=== PATIENT | female | born 1990 | race Caucasian/White ===

== ENCOUNTER 2018-02-05 08:28 | Emergency (ER) | payer MEDICAID, OTHER ==
--- NOTE | 2018-02-05 10:53 | RAD ---
HISTORY: abd pain/RUQ tenderness/eary satiety COMPARISONS: None TECHNIQUE: Multiple transverse and longitudinal ultrasound images were obtained of the right upper quadrant of the abdomen using grayscale, color Doppler, and spectral Doppler imaging. FINDINGS: LIVER: The liver is normal in shape, size, contour, and echogenicity. There are no focal parenchymal masses. There is normal hepatopedal flow of the portal vein on Doppler imaging. BILIARY TREE: There is no intrahepatic or extrahepatic biliary dilatation. The common duct measures 0.3 cm. GALLBLADDER: The gallbladder is well-visualized. There is no cholelithiasis, gallbladder wall thickening, pericholecystic fluid, or sonographic Velázquez sign. PANCREAS: The head of the pancreas is unremarkable. The tail of the pancreas is not well visualized secondary to overlying bowel gas. RIGHT KIDNEY: The right kidney is normal in shape, size, contour, and echogenicity. There is no hydronephrosis or nephrolithiasis. The right kidney measures 10.3 x 3.9 x 4.2 cm. AORTA AND IVC: The aorta and IVC are unremarkable. Normal arterial and venous waveforms are identifiable on spectral Doppler imaging. FLUID: There are no pleural effusions. There is no free fluid within the hepatorenal recess. OTHER FINDINGS: None. IMPRESSION: NO ACUTE SONOGRAPHIC PATHOLOGY OF THE VISUALIZED PORTION OF THE ABDOMEN.
--- NOTE | 2018-02-05 10:57 | UC ---
Abdominal Pain Female HPI - HPI Summary HPI Summary: The patient is a 27-year-old female that has had intermittent abdominal pain for the past 2-3 weeks. She has been doing a lot of travel. During her travels she experienced constipation and had to take a laxative. She has a past history of reflux and had an upper endoscopy in the past. She has also been treated for gastritis. She states initially she seemed to have left upper quadrant abdominal pain that radiated towards her right lower quadrant. His seemed to resolve and now she has primarily right sided abdominal pain. She denies any vomiting. Does feel anorexic. His had nausea. Denies any diarrhea. He still feels somewhat constipated. She has had no change in her weight. Denies any UTI symptoms. Denies any vaginal discharge or itching. He is not having any dyspareunia. She has had no fever or chills. When she does eat she feels full very quickly. - History of Current Complaint Chief Complaint: UCAbdominalPain Stated Complaint: ABDOMINAL PAIN Time Seen by Provider: 02/05/18 09:53 Hx Obtained From: Patient Hx Last Menstrual Period: 01/18 Onset/Duration: Gradual Onset, Lasting Hours Timing: Intermittent Episodes Lasting: Severity Initially: Moderate Severity Currently: Moderate Pain Intensity: 7 Pain Scale Used: 0-10 Numeric Location: Discrete At: RUQ Radiates: No Character: Aching, Cramping Aggravating Factor(s): Nothing Alleviating Factor(s): Nothing Associated Signs and Symptoms: Positive: Decreased Appetite, Nausea Allergies/Adverse Reactions: Allergies Allergy/AdvReac Type Severity Reaction Status Date / Time Egg Derived Allergy Stomach Verified 02/05/18 10:03 Cramps PMH/Surg Hx/FS Hx/Imm Hx Previously Healthy: Yes GI/ History: Gastroesophageal Reflux - Surgical History Surgical History: None - Family History Known Family History: Positive: Hypertension - Social History Alcohol Use: Occasionally Substance Use Type: Marijuana Substance Use Comment - Amount & Last Used: last week Smoking Status (MU): Current Some Day Smoker Type: Cigarettes Review of Systems Constitutional: Negative Skin: Negative Eyes: Negative ENT: Negative Respiratory: Negative Cardiovascular: Negative Gastrointestinal: Nausea Genitourinary: Negative Motor: Negative Neurovascular: Negative Musculoskeletal: Negative Neurological: Negative Psychological: Negative Is Patient Immunocompromised?: No All Other Systems Reviewed And Are Negative: Yes Physical Exam Triage Information Reviewed: Yes Appearance: Well-Appearing, No Pain Distress, Well-Nourished Vital Signs: Initial Vital Signs Temp 98.0 F 02/05/18 08:40 Pulse 73 02/05/18 08:40 Resp 18 02/05/18 08:40 BP 109/71 02/05/18 08:40 Pulse Ox 100 02/05/18 08:40 Vital Signs Reviewed: Yes Eyes: Positive: Conjunctiva Clear ENT: Positive: Hearing grossly normal. Negative: Nasal congestion, Nasal drainage, Trismus, Muffled voice, Sinus tenderness, Uvula midline Neck: Positive: Supple, Nontender Respiratory: Positive: Lungs clear, Normal breath sounds, No respiratory distress, No accessory muscle use Cardiovascular: Positive: RRR, No Murmur Abdomen Description: Positive: Soft. Negative: Nontender - RUQ and LLQ abd tenderness, CVA Tenderness (R), CVA Tenderness (L), Hepatomegaly, McBurney's Point Tenderness, Pulsatile Mass, Splenomegaly Musculoskeletal: Positive: ROM Intact, No Edema Neurological Exam: Normal Neurological: Positive: Alert Psychological Exam: Normal Skin Exam: Normal Diagnostics - Laboratory Diagnostic Studies Completed/Ordered: UA- + leuks Abd Pain Female Course/Dx - Differential Dx/Diagnosis Provider Diagnoses: abdominal pain of uncertain cause. ? contipation Discharge - Sign-Out/Discharge Documenting (check all that apply): Patient Departure All imaging exams completed and their final reports reviewed: Yes - Discharge Plan Condition: Stable Disposition: HOME Prescriptions: Omeprazole 20 mg PO BEDTIME #14 capsule. Patient Education Materials: Constipation (ED), Acute Abdominal Pain (ED) Referrals: [facility] [place]] - As Soon As Possible No Primary Care Phys,NOPCP [Primary Care Provider] - Additional Instructions: milk of magnesia 30 ml 2 tablesponns every 6 hours x 3 doses Recheck for increased pain/fever/vomiting find local MD as planned recheck in not better in 1-2 days - Billing Disposition and Condition Condition: STABLE Disposition: Home
--- NOTE | 2018-02-05 11:02 | RAD ---
Indication: Abdominal pain. Comparison: Abdominal ultrasound of the same date. Technique: Supine and upright views of the abdomen. Report: Negative for free air beneath the diaphragm. Moderate stool present throughout the colon. No dilated small or large bowel loops evident. Negative for suspicious calcifications or mass effect. Unremarkable soft tissue contours. Clear lung bases. IMPRESSION: #. No abdominal pelvic pathologic process evident.
[2018-02-05 11:32] VITALS: BP 100/55
== END 2018-02-05 11:20 | disposition home or self-care (01) ==
LOC: UCEAST 08:28
CPT/HCPCS: 74019; 76705; 81003; 84702; 87086; 99212; G0463

== ENCOUNTER 2018-02-09 08:42 | Emergency (ER) | payer MEDICAID ==
[2018-02-09 08:54] VITALS: BP 107/66
--- NOTE | 2018-02-09 09:37 | UC ---
Abdominal Pain Female HPI - HPI Summary HPI Summary: PATIENT WITH SEVERAL WEEKS OF RIGHT SIDED ABDOMINAL PAIN DESCRIBED CRAMPING/ BURNING. WAS SEEN FOR THIS 4 DAYS AGO AND HAD RIGHT UPPER QUADRANT ULTRASOUND AND ABDOMINAL X-RAYS WHICH WERE UNREMARKABLE. URINE CULTURE SHOWED NO GROWTH. PRESCRIBED MILK OF MAGNESIA. SHE HAD A LARGE BM YESTERDAY AND SAW LITTLE BIT OF BLOOD. THOUGHT SHE WAS FEELING BETTER INITIALLY BUT NOW REPORTS PAIN IS THE SAME. IT IS INTERMITTENT LASTING UP TO AN HOUR MULTIPLE TIMES DAILY. HAD SOME NAUSEA THIS MORNING WORSE AFTER EATING AND REPORTS URINARY FREQUENCY. NO FEVER. - History of Current Complaint Chief Complaint: UCAbdominalPain Stated Complaint: ABD PAIN Time Seen by Provider: 02/09/18 09:36 Hx Obtained From: Patient Hx Last Menstrual Period: 01/18/18 Onset/Duration: Gradual Onset, Lasting Weeks, Still Present Severity Initially: Moderate Severity Currently: Mild Pain Intensity: 1 Pain Scale Used: 0-10 Numeric Location: Discrete At: RUQ, Discrete At: RLQ, Epigastric Radiates: No Character: Burning, Cramping Alleviating Factor(s): Nothing Associated Signs and Symptoms: Negative: Fever Allergies/Adverse Reactions: Allergies Allergy/AdvReac Type Severity Reaction Status Date / Time Egg Derived Allergy Stomach Verified 02/09/18 08:54 Cramps Home Medications: Home Medications Cetirizine* [ZyrTEC 10 MG TAB*] 10 mg PO DAILY 02/09/18 [History Confirmed 02/09] Magnesium Hydroxide LIQ* [Milk of Magnesia LIQ*] 30 ml PO DAILY PRN 02/09/18 [ History Confirmed 02/09/18] PMH/Surg Hx/FS Hx/Imm Hx GI/ History: Gastroesophageal Reflux - Surgical History Surgical History: None - Family History Known Family History: Positive: Hypertension Family History: BREAST CA - MOM, MS - DAD - Social History Alcohol Use: Occasionally Substance Use Type: Marijuana Substance Use Comment - Amount & Last Used: once, last week Smoking Status (MU): Current Some Day Smoker Type: Cigarettes Amount Used/How Often: twice a year Review of Systems Constitutional: Negative Skin: Negative Respiratory: Negative Cardiovascular: Negative Gastrointestinal: Abdominal Pain, Nausea Genitourinary: Frequency All Other Systems Reviewed And Are Negative: Yes Physical Exam Triage Information Reviewed: Yes Appearance: Well-Appearing, No Pain Distress, Well-Nourished Vital Signs: Initial Vital Signs Temp 97.7 F 02/09/18 08:47 Pulse 73 02/09/18 08:47 Resp 16 02/09/18 08:47 BP 107/66 02/09/18 08:47 Pulse Ox 100 02/09/18 08:47 Laboratory Tests 02/09/18 09:51 POC Urine Color Yellow POC Urine Clarity Slightly cloudy POC Urine pH 6.5 POC Ur Specif Fabius 1.015 POC Urine Protein Negative POC Ur Glucose (UA) Negative POC Urine Ketones Negative POC Urine Blood Trace-lysed A POC Urine Nitrite Negative POC Urine Bilirubin Negative POC Urine Urobilinogen 0.2 POC U Leukocyte Esteras Trace A Vital Signs Reviewed: Yes Eyes: Positive: Conjunctiva Clear ENT: Positive: Hearing grossly normal Neck: Positive: Supple, Nontender, No Lymphadenopathy Respiratory Exam: Normal Cardiovascular Exam: Normal Abdomen Description: Positive: Soft, Other: - TTP RUQ, RLQ, EPIGASTRIC. NO REBOUND OR RIGIDITY. NEG OBTURATOR. Negative: CVA Tenderness (R), CVA Tenderness (L), Distended Bowel Sounds: Positive: Present Musculoskeletal: Positive: No Edema Neurological: Positive: Alert Psychological: Positive: Age Appropriate Behavior Skin: Negative: rashes Abd Pain Female Course/Dx - Course Course Of Treatment: UNCLEAR ETIOLOGY OF PATIENT'S SYMPTOMS. URINE IS GROSSLY UNREMARKABLE. WILL SEND FOR CULTURE GIVEN IT HAS TRACE LEUKOCYTES HOWEVER LOW SUSPICION FOR URINARY ETIOLOGY. URINE CULTURE FROM LAST VISIT 4 DAYS AGO WAS NEGATIVE. IMAGING AT LAST VISIT WAS ALSO NEGATIVE. PATIENT IS IN NO ACUTE DISTRESS. DISCUSSED TRANSFER TO ED FOR FURTHER EVALUATION GIVEN PERSISTENT SYMPTOMS HOWEVER PATIENT PREFERS TO FOLLOW UP AN OUTPATIENT. ADVISED TO GO TO ED WITHOUT FAIL IF SYMPTOMS WORSEN. ISOLATED EPISODE OF BLOOD IN STOOL LIKELY DUE TO LARGE VOLUME OF BM AFTER TAKING LAXATIVE. - Differential Dx/Diagnosis Provider Diagnoses: RIGHT SIDED ABDOMINAL PAIN, NOS Discharge - Sign-Out/Discharge Documenting (check all that apply): Patient Departure All imaging exams completed and their final reports reviewed: No Studies - Discharge Plan Condition: Stable Disposition: HOME Patient Education Materials: Abdominal Pain (ED) Referrals: Fred Brown MD [Medical Doctor] - ( SCHEDULED) Additional Instructions: UNCLEAR ETIOLOGY OF YOUR SYMPTOMS TODAY. URINE TEST WAS UNREMARKABLE. WE WILL SEND IT FOR CULTURE TO ASSURE NO INFECTIOUS PROCESS. YOU HAD RIGHT UPPER QUADRANT ULTRASOUND AND ABDOMINAL X-RAYS AT YOUR LAST VISIT WHICH WERE UNREMARKABLE. FOLLOW A BLAND, EASY DIET AND KEEP YOUR UPCOMING APPOINTMENT WITH YOUR PCP. GO TO THE ED WITHOUT FAIL IF YOU DEVELOP WORSENING PAIN, NAUSEA , BLOOD PER RECTUM, FEVER OR ANY OTHER CONCERNING SYMPTOMS. - Billing Disposition and Condition Condition: STABLE Disposition: Home
== END 2018-02-09 10:15 | disposition home or self-care (01) ==
LOC: UCEAST 08:42
DX: K21.9 Gastro-esophageal reflux disease without esophagitis (principal); R10.9 Unspecified abdominal pain; F17.210 Nicotine dependence, cigarettes, uncomplicated
CPT/HCPCS: 81003; 84702; 87086; 99211; G0463

== ENCOUNTER 2018-02-09 11:34 | Emergency (ER) | payer MEDICAID ==
[2018-02-09 15:47] LABS: ABS Basophils 0.1 10^3/ul (0-0.2); ABS Eosinophils 0.1 10^3/ul (0-0.6); ABS Lymphocytes 2.3 10^3/ul (1.0-4.8); ABS Monocytes 0.3 10^3/ul (0-0.8); ABS Neutrophils 3.9 10^3/ul (1.5-7.7); ABS Nucleated RBC 0 10^3/ul; Eosinophil % 1.5 % (0-6); Hematocrit 41 % (35-47); Hemoglobin 14.2 g/dl (12.0-16.0); Lymphocyte % 34.7 % (25-47); Mean Corpuscular HGB Conc 34 g/dl (31-36); Mean Corpuscular Hemoglobin 32 pg (27-31); Mean Corpuscular Volume 94 fL (80-97); Mean Platelet Volume 8.3 um3 (7.4-10.4); Nucleated Red Blood Cells % 0.1; Platelet Count 184 10^3/ul (150-450); Red Cell Distribution Width 13 % (10.5-15); White Blood Count 6.7 10^3/ul (3.5-10.8)
[2018-02-09 16:03] LABS: INR 1.02 (0.77-1.02)
[2018-02-09 16:10] LABS: EGFR Non-African American 84.2 (>60)
[2018-02-09] MEDS ORDERED: NS 0.9% 1000 ML* 1,000 ML IV ONE (17:47)
--- NOTE | 2018-02-09 18:15 | ED ---
Abdominal Pain/Female - HPI Summary HPI Summary: Patient presents with abdominal pain that she has had for 3 weeks to 1 month now. She reports it's been diffuse but it first was predominantly on the left. Since 3 days ago, her pain is transitioning more to her umbilicus and the right. Her symptoms of been consistent throughout. She reports a constant pressure with is 0-1 pain when she is resting and pain goes up to a 5 out of 10 at its worst with movement. This was initially identified when she was walking to the bus. Admits pain is still worse when she walks for periods of time. She has had a reduced appetite and vague nausea however no vomiting. She does have a history of GERD however does not feel this is any worse as of late. She does have a history of EGD and was prescribed PPIs however she doesn't take these as it makes her belch. She also avoids NSAIDs as they do upset her stomach. She's been taking a PPI for the past 3 days to see if this will help her pain however she has noticed no change in her symptoms. [facility] and had a UA which was negative for acute UTI and did not grow out any bacteria on culture. She also had a an ultrasound of her gallbladder which was normal and an abdominal x-ray which revealed constipation. She does admit she has issues with this and after taking milk of magnesium recently, she was able to move her bowels for 3 consistent days. She reports this did help her pain at first however pain returned and so she was seen again today at [facility]. Because her pain is migrated to the. Umbilical and right side of her body, there was concern for appendicitis. Patient denies fever, chills. She does report a 1 time bright red blood on toilet paper with wiping after moving her bowels. She reports this was painful and she has a history of hemorrhoids and this felt the same. She also admits to increased urinary frequency with right flank pain however denies dysuria, urinary urgency and no arlin change in color or odor of her urine. Additionally she denies vaginal discharge, irritation or itching. She is sexually active with her . Denies dyspareunia, postcoital bleeding. She 's never had a Pap smear or pelvic exam. No family history of gastrointestinal , urinogenital cancers. She does not feel she needs anything for pain or nausea at this point in time. Reports today is the best she has felt while waiting for test results laying in bed and not eating. - History of Current Complaint Chief Complaint: EDAbdPain Stated Complaint: ABD PAIN Hx Obtained From: Patient, Family/School Psychology Specialist - Hx Last Menstrual Period: 01/18/18 Pain Intensity: 4 Allergies/Adverse Reactions: Allergies Allergy/AdvReac Type Severity Reaction Status Date / Time Egg Derived Allergy Stomach Verified 02/09/18 11:36 Cramps Home Medications: Home Medications Omeprazole CAP* [Prilosec CAP* 20 MG] 20 mg PO BEDTIME 02/09/18 [History Confirmed 02/09/18] PMH/Surg Hx/FS Hx/Imm Hx Previously Healthy: Yes Endocrine/Hematology History: Denies: Hx Anticoagulant Therapy, Hx Blood Disorders, Hx Diabetes Cardiovascular History: Denies: Hx Hypertension, Hx Pacemaker/ICD GI History: Reports: Hx Gastroesophageal Reflux Disease Denies: Hx Crohn's Disease, Hx Gall Bladder Disease, Hx Irritable Bowel History: Denies: Hx Kidney Infection, Hx Kidney Stones, Hx Renal Disease Sensory History: Reports: Hx Contacts or Glasses Denies: Hx Hearing Aid Opthamlomology History: Reports: Hx Contacts or Glasses Psychiatric History: Reports: Hx Panic Disorder - ANXIETY Infectious Disease History: No Infectious Disease History: Denies: Traveled Outside the [place] in Last 30 Days - Family History Known Family History: Positive: Hypertension Family History: BREAST CA - MOM, MS - DAD - Social History Lives: With Family - Alcohol Use: Occasionally Substance Use Type: Reports: Marijuana Substance Use Comment - Amount & Last Used: once, last week Smoking Status (MU): Current Some Day Smoker Type: Cigarettes Amount Used/How Often: twice a year Review of Systems Constitutional: Negative Negative: Fever, Chills, Fatigue ENT: Negative Negative: Sore Throat Cardiovascular: Negative Negative: Chest Pain Respiratory: Negative Negative: Shortness Of Breath, Cough Positive: Abdominal Pain, Nausea. Negative: Vomiting, Diarrhea Positive: frequency, flank pain. Negative: burning, dysuria, discharge, hematuria, incontinence, pain, urgency Musculoskeletal: Negative Skin: Negative Neurological: Negative Psychological: Normal All Other Systems Reviewed And Are Negative: Yes Physical Exam Triage Information Reviewed: Yes Vital Signs On Initial Exam: Initial Vitals Temp Pulse Resp BP Pulse Ox 97.3 F 82 14 114/68 100 02/09/18 11:36 02/09/18 11:36 02/09/18 11:36 02/09/18 11:36 02/09/18 11:36 Vital Signs Reviewed: Yes Abdomen Description: Positive: Soft, McBurney's Point Tenderness - no rebounding ; (-) obturator, (-) psoas, Other: - mild LLQ pain, periumbilical pain, RUQ pain - no rebounding; epigastric and LUQ NTTP. Negative: CVA Tenderness (R), CVA Tenderness (L), Hernia @ Bowel Sounds: Positive: Present Pelvic Exam: Positive: External Exam Normal, Bimanual Exam Normal - pt reports some discomfort but no acute pain, No Cerv. Motion Tender, No Masses, Discharge - white mucous d/c. Negative: Active Bleeding Musculoskeletal: Positive: Normal, Strength/ROM Intact Neurological: Positive: Normal, Sensory/Motor Intact, Alert, Oriented to Person Place, Time, CN Intact II-III Psychiatric: Positive: Normal Diagnostics - Vital Signs Vital Signs Temp Pulse Resp BP Pulse Ox 02/09/18 17:00 86 99 02/09/18 16:00 84 100 02/09/18 15:01 89 100 02/09/18 14:59 77 112/72 100 02/09/18 14:22 62 107/66 100 02/09/18 14:00 79 100 02/09/18 13:53 67 94 02/09/18 13:52 72 106/75 100 02/09/18 11:36 97.3 F 82 14 114/68 100 - Laboratory Lab Results: Lab Results 02/09/18 02/09/18 02/09/18 Range/Units 15:32 15:32 15:32 WBC 6.7 (3.5-10.8) 10^3/ul RBC 4.40 (4.00-5.40) 10^6/ul Hgb 14.2 (12.0-16.0) g/dl Hct 41 (35-47) % MCV 94 (80-97) fL MCH 32 H (27-31) pg MCHC 34 (31-36) g/dl RDW 13 (10.5-15) % Plt Count 184 (150-450) 10^3/ul MPV 8.3 (7.4-10.4) um3 Neut % (Auto) 57.7 (38-83) % Lymph % (Auto) 34.7 (25-47) % Richardson % (Auto) 5.2 (0-7) % Eos % (Auto) 1.5 (0-6) % Baso % (Auto) 0.9 (0-2) % Absolute Neuts (auto) 3.9 (1.5-7.7) 10^3/ul Absolute Lymphs (auto) 2.3 (1.0-4.8) 10^3/ul Absolute Monos (auto) 0.3 (0-0.8) 10^3/ul Absolute Eos (auto) 0.1 (0-0.6) 10^3/ul Absolute Basos (auto) 0.1 (0-0.2) 10^3/ul Absolute Nucleated RBC 0 10^3/ul Nucleated RBC % 0.1 INR (Anticoag Therapy) 1.02 (0.77-1.02) APTT 26.5 (26.0-36.3) seconds Sodium 138 (135-145) mmol/L Potassium 3.7 (3.5-5.0) mmol/L Chloride 108 (101-111) mmol/L Carbon Dioxide 23 (22-32) mmol/L Anion Gap 7 (2-11) mmol/L BUN 8 (6-24) mg/dL Creatinine 0.81 (0.51-0.95) mg/dL Est GFR ( Amer) 101.9 (>60) Est GFR (Non-Af Amer) 84.2 (>60) BUN/Creatinine Ratio 9.9 (8-20) Glucose 81 (70-100) mg/dL Lactic Acid (0.5-2.0) mmol/L Calcium 9.5 (8.6-10.3) mg/dL Magnesium 2.0 (1.9-2.7) mg/dL Total Bilirubin 0.70 (0.2-1.0) mg/dL AST 14 (13-39) U/L ALT 8 (7-52) U/L Alkaline Phosphatase 35 (34-104) U/L C-Reactive Protein < 1.00 (<8.01) mg/L Total Protein 7.3 (6.4-8.9) g/dL Albumin 4.6 (3.2-5.2) g/dL Globulin 2.7 (2-4) g/dL Albumin/Globulin Ratio 1.7 (1-3) Lipase 26 (11.0-82.0) U/L Beta HCG, Quant < 0.60 mIU/mL 02/09/18 Range/Units 15:32 WBC (3.5-10.8) 10^3/ul RBC (4.00-5.40) 10^6/ul Hgb (12.0-16.0) g/dl Hct (35-47) % MCV (80-97) fL MCH (27-31) pg MCHC (31-36) g/dl RDW (10.5-15) % Plt Count (150-450) 10^3/ul MPV (7.4-10.4) um3 Neut % (Auto) (38-83) % Lymph % (Auto) (25-47) % Richardson % (Auto) (0-7) % Eos % (Auto) (0-6) % Baso % (Auto) (0-2) % Absolute Neuts (auto) (1.5-7.7) 10^3/ul Absolute Lymphs (auto) (1.0-4.8) 10^3/ul Absolute Monos (auto) (0-0.8) 10^3/ul Absolute Eos (auto) (0-0.6) 10^3/ul Absolute Basos (auto) (0-0.2) 10^3/ul Absolute Nucleated RBC 10^3/ul Nucleated RBC % INR (Anticoag Therapy) (0.77-1.02) APTT (26.0-36.3) seconds Sodium (135-145) mmol/L Potassium (3.5-5.0) mmol/L Chloride (101-111) mmol/L Carbon Dioxide (22-32) mmol/L Anion Gap (2-11) mmol/L BUN (6-24) mg/dL Creatinine (0.51-0.95) mg/dL Est GFR ( Amer) (>60) Est GFR (Non-Af Amer) (>60) BUN/Creatinine Ratio (8-20) Glucose (70-100) mg/dL Lactic Acid 1.1 (0.5-2.0) mmol/L Calcium (8.6-10.3) mg/dL Magnesium (1.9-2.7) mg/dL Total Bilirubin (0.2-1.0) mg/dL AST (13-39) U/L ALT (7-52) U/L Alkaline Phosphatase (34-104) U/L C-Reactive Protein (<8.01) mg/L Total Protein (6.4-8.9) g/dL Albumin (3.2-5.2) g/dL Globulin (2-4) g/dL Albumin/Globulin Ratio (1-3) Lipase (11.0-82.0) U/L Beta HCG, Quant mIU/mL Result Diagrams: 02/09/18 15:32 02/09/18 15:32 Lab Statement: Any lab studies that have been ordered have been reviewed, and results considered in the medical decision making process. Abdominal Pain Fem Course/Dx - Course Course Of Treatment: Pt presents w/ 3-4 weeks of diffuse, migratory ab pain. TVUS to check for ovarian cyst/torsion. CT ab/pelvis if TVUS is normal to assess for appendicitis (very low clinical assessment), urinary tract stone, colon inflammation. Labs and vitals are WNL. Signed out to Mayra Khan PA-C in stable condition - pt continues to decline pain/nausea meds - Diagnoses Provider Diagnoses: Abdominal pain Discharge - Sign-Out/Discharge Documenting (check all that apply): Sign-Out Patient Signing out patient TO: Linette Khan - Discharge Plan Referrals: Ferd Brown MD [Primary Care Provider] -
--- NOTE | 2018-02-09 19:07 | RAD ---
EXAM: US Pelvis Complete, Transabdominal CLINICAL HISTORY: 27 years old, female; Pain; Pelvic pain; Additional info: B/l lower pelvic pain intermittent x 1 month TECHNIQUE: Real-time transabdominal pelvic ultrasound (complete) with image documentation. COMPARISON: No relevant prior studies available. FINDINGS: Uterus/cervix: Anteverted anteflexed. Measures 7.7 x 5.1 x 3.4 cm (70 cc). No myometrial masses. Late proliferative phase endometrium measuring 0.7 cm. Right ovary: Right ovary measures 2.9 x 2.9 x 1.8 cm (8 cc). Normal size and echogenicity with no masses. Normal follicles. Normal arterial and venous waveforms. Left ovary: Left ovary measures 2.6 x 2.0 x 1.7 cm (5 cc). Normal size and echogenicity with no masses. Normal follicles. Normal arterial and venous waveforms. Free fluid: Small simple physiologic free fluid in the pelvic cul-de-sac. Bladder: Normal as visualized. Wall is normal thickness for degree of distention. IMPRESSION: Sonographically normal uterus and ovaries.
--- NOTE | 2018-02-09 19:31 | ED ---
Progress - Progress Note Progress Note: patient signed out by Chary pending imaging transvaginal u/s shows : no acute pathology Ct abd: IMPRESSION: No CT findings to correlate with patient's symptomatology. Re-Evaluation - Re-Evaluation First Eval Re-Evaluation Time: 19:34 Comment: discussed u/s results Course/Dx - Course Course Of Treatment: Pt presents w/ 3-4 weeks of diffuse, migratory ab pain. TVUS to check for ovarian cyst/torsion. CT ab/pelvis if TVUS is normal to assess for appendicitis (very low clinical assessment), urinary tract stone, colon inflammation. Labs and vitals are WNL. Signed out to Mayra Khan PA-C in stable condition - pt continues to decline pain/nausea meds. transvaginal u/s normal. CT abd normal. discussed likely constipation cause the pain. as crp normal. discussed options with patient and will continue milk of magnesium. will have follow up with primary. may need follow up with GI if no improvement in future. patient understand and agrees with plan. - Diagnoses Provider Diagnoses: Abdominal pain Discharge - Sign-Out/Discharge Documenting (check all that apply): Receiving Sign-Out Receiving patient FROM: Chary Ayala - Discharge Plan Condition: Good Disposition: HOME Patient Education Materials: Abdominal Pain (ED) Referrals: Fred Brown MD [Primary Care Provider] - Additional Instructions: take milk of magnesium 30ml at night Follow up with primary within 5 days Eat a lot of fiber and drink plenty of water Return to ED if develop any new or worsening symptoms - Billing Disposition and Condition Condition: GOOD Disposition: Home
[2018-02-09 19:50] VITALS: BP 115/61
--- NOTE | 2018-02-09 20:26 | RAD ---
EXAM: CT Abdomen and Pelvis Without Intravenous Contrast CLINICAL HISTORY: 27 years old, female; Pain; Abdominal pain; Additional info: Diffuse ab pain TECHNIQUE: Axial computed tomography images of the abdomen and pelvis without intravenous contrast. All CT scans at this facility use at least one of these dose optimization techniques: automated exposure control; mA and/or kV adjustment per patient size (includes targeted exams where dose is matched to clinical indication); or iterative reconstruction. Coronal and sagittal reformatted images were created and reviewed. COMPARISON: PELVIC US PELVIC 02/09/2018 6:24 PM FINDINGS: Lung bases: Normal. No mass. No consolidation. ABDOMEN: Liver: Normal. Normal size. No masses. Gallbladder and bile ducts: Normal. No radiopaque calculi. No ductal dilation. Pancreas: Normal. No ductal dilation. Spleen: Normal. No splenomegaly. Adrenals: Normal. No mass. Kidneys and ureters: Normal. No obstructing stones. Stomach and bowel: Incompletely distended grossly normal stomach. Normal caliber small bowel. No colonic masses or segmental wall thickening. PELVIS: Appendix: Normal caliber appendix without wall thickening or adjacent inflammation. Bladder: Thin-walled bladder with no focal nodularity, perivesicular stranding, or calcifications. No stones. Reproductive: Uterus and ovaries are normal. ABDOMEN and PELVIS: Intraperitoneal space: Normal. No pneumoperitoneum. No ascities. Bones/joints: No fractures. No suspicious bone lesions. Soft tissues: Normal. No hernias. Vasculature: Normal. No abdominal aortic aneurysm. Lymph nodes: Normal. No enlarged lymph nodes. IMPRESSION: No CT findings to correlate with patient's symptomatology.
== END 2018-02-09 21:10 | disposition home or self-care (01) ==
LOC: ED 11:34
DX: R10.9 Unspecified abdominal pain (principal)
CPT/HCPCS: 36415; 74176; 76856; 80053; 83605; 83690; 83735; 84702; 85025; 85610; 85730; 86140; 87480; 87491; 87510; 87591; 87661; 96360; 99283